=== PATIENT | male | born 1975 | race Caucasian/White ===

== ENCOUNTER 2017-10-29 15:01 | Emergency (ER) | payer OTHER ==
[~2017-10-29] VITALS: Ht 162.6 cm; Wt 70.0 kg
[2017-10-29 15:10] VITALS: BP 147/98; PULSE 88; RESP 16; TEMP 98.3; O2SAT 97
[2017-10-29] MEDS ORDERED: LACTULOSE SYRUP 20 GM/30 ML CUP PO ONE (18:30)
[2017-10-29] MEDS ORDERED: MAGNESIUM HYDROXIDE SUSP 30 ML CUP PO ONE (18:30)
--- NOTE | 2017-10-29 19:11 | RADRPT ---
EXAM DATE: 10/29/2017 6:56 PM EDT AGE/SEX: 42 years / Male INDICATIONS: Abdominal pain and distention. CLINICAL DATA: This is the patient's initial encounter. Patient reports that signs and symptoms have been present for 2 weeks and indicates a pain score of 8/10. MEDICAL/SURGICAL HISTORY: None. . Total knee surgery. COMPARISON: No prior exams available for comparison. FINDINGS: The bowel gas is nonspecific. There are no signs of obstruction or free air for technique . No definite calcified stones are identified for technique. Moderate stool is present throughout the colon. CONCLUSION: Unremarkable study except for stool. Electronically signed by: Claudia Martinez MD 10/29/2017 7:09 PM EDT
[2017-10-29 19:15] LABS: AUTOMATED NEUTROPHIL # 8.1 TH/MM3 (1.8-7.7); BASOPHIL % 0.2 % (0.0-2.0); EOSINOPHIL % 0.1 % (0.0-4.0); HEMATOCRIT 41.8 % (39.0-51.0); LYMPH % 15.8 % (9.0-44.0); LYMPHOCYTE # 1.6 TH/MM3 (1.0-4.8); MEAN CORPUSCULAR HEMOGLOBIN 28.4 PG (27.0-34.0); MEAN CORPUSCULAR HGB CONC 33.5 % (32.0-36.0); MEAN PLATELET VOLUME 6.8 FL (7.0-11.0); MONO % 3.7 % (0.0-8.0); MONOCYTE # 0.4 TH/MM3 (0-0.9); NEUT % 80.2 % (16.0-70.0); PLATELET COUNT 554 TH/MM3 (150-450); RED BLOOD COUNT 4.92 MIL/MM3 (4.50-5.90); RED CELL DISTRIBUTION WIDTH 13.6 % (11.6-17.2); WHITE BLOOD COUNT 10.1 TH/MM3 (4.0-11.0)
[2017-10-29] MEDS ORDERED: PEG (High)/E-LYTE SOLN 4000 ML BTL PO ONE (19:15)
[2017-10-29 19:25] LABS: ALBUMIN 4.1 GM/DL (3.4-5.0); AST (GOT) 23 U/L (15-37); BICARBONATE 27.7 MEQ/L (21.0-32.0); BLOOD UREA NITROGEN 17 MG/DL (7-18); CALCIUM 9.3 MG/DL (8.5-10.1); CHLORIDE 103 MEQ/L (98-107); CREATININE 1.03 MG/DL (0.60-1.30); GLOMERULAR FILTRATION RATE 80 ML/MIN (>89); GLUCOSE,RANDOM 94 MG/DL (74-106); SODIUM (NA) 141 MEQ/L (136-145)
[2017-10-29 19:28] LABS: ALKALINE PHOSPHATASE 104 U/L (45-117); ALT (GPT) 36 U/L (12-78); TOTAL BILIRUBIN ADULT 0.5 MG/DL (0.2-1.0); TOTAL PROTEIN 8.4 GM/DL (6.4-8.2)
--- NOTE | 2017-10-29 19:32 | PD ---
HPI Chief Complaint: GI Complaint Time Seen by Provider: 18:15 Travel History International Travel<30 days: No Contact w/Intl Traveler<30days: No Traveled to known affect area: No History of Present Illness HPI Patient is a 42 year old male who comes in complaining of constipation. He had a knee replacement performed 2 weeks ago and has been taking pain medication for this. He says that he has mostly been having small, hard bowel movements and he feels like he has to go. He went to the [place] on Sunday and was given 2 enemas and he says "2 pills," but has not had a significant bowel movement. He says he has tried to eat more fiber, "popcorn, pistachios, fruit," but still is not having regular bowel movements. He says he has some lower abdominal cramping. [facility] and make sure he is not impacted or obstructed. He denies nausea or vomiting. He denies fever or chills. Severity is mild. [facility] Past Medical History Hypertension: Yes (DIET CONTROLLED) Past Surgical History Joint Replacement: Yes (LEFT KNEE REPLACEMENT ) Social History Alcohol Use: Yes (OCCASIONAL) Tobacco Use: No Substance Use: No Allergies-Medications (Allergen,Severity, Reaction): Coded Allergies: No Known Allergies (Unverified , 10/29/17) Review of Systems Except as stated in HPI: all other systems reviewed are Neg General / Constitutional: No: Fever, Chills HENT: No: Headaches, Lightheadedness Cardiovascular: No: Chest Pain or Discomfort Respiratory: No: Shortness of Breath Gastrointestinal: Positive: Constipation, No: Nausea, Vomiting Musculoskeletal: No: Myalgias, Edema Skin: No Rash, No Change in Pigmentation Neurologic: No: Weakness, Dizziness Physical Exam Narrative GENERAL: Awake and alert, in no acute distress. SKIN: Focused skin assessment warm/dry. HEAD: Atraumatic. Normocephalic. EYES: Pupils equal and round. No scleral icterus. ENT: Mucous membranes pink and moist. NECK: Trachea midline. No JVD. CARDIOVASCULAR: Regular rate and rhythm. No murmur appreciated. RESPIRATORY: No accessory muscle use. Clear to auscultation. Breath sounds equal bilaterally. GASTROINTESTINAL: Abdomen soft, non-tender, nondistended. No rebound or guarding. MUSCULOSKELETAL: No obvious deformities. No clubbing. No cyanosis. No edema. NEUROLOGICAL: Awake and alert. No obvious cranial nerve deficits. Motor grossly within normal limits. Normal speech. PSYCHIATRIC: Appropriate mood and affect; insight and judgment normal. Data Data Last Documented VS Vital Signs Date Time Temp Pulse Resp B/P (MAP) Pulse Ox O2 Delivery O2 Flow Rate FiO2 10/29/17 15:10 98.3 88 16 147/98 (114) 97 Orders Orders Complete Blood Count With Diff (10/29/17 18:22) Comprehensive Metabolic Panel (10/29/17 18:22) Iv Access Insert/Monitor (10/29/17 18:22) Lactulose Liq (Lactulose Liq) (10/29/17 18:30) Magnesium Hydroxide Liq (Milk Of Magnesi (10/29/17 18:30) Abdomen, Flat & Upright (10/29/17 ) Peg (High)/E-Lyte Liq (Colyte Liq) (10/29/17 19:15) Labs Laboratory Tests Test 10/29/17 18:49 White Blood Count 10.1 TH/MM3 Red Blood Count 4.92 MIL/MM3 Hemoglobin 14.0 GM/DL Hematocrit 41.8 % Mean Corpuscular Volume 85.0 FL Mean Corpuscular Hemoglobin 28.4 PG Mean Corpuscular Hemoglobin Concent 33.5 % Red Cell Distribution Width 13.6 % Platelet Count 554 TH/MM3 Mean Platelet Volume 6.8 FL Neutrophils (%) (Auto) 80.2 % Lymphocytes (%) (Auto) 15.8 % Monocytes (%) (Auto) 3.7 % Eosinophils (%) (Auto) 0.1 % Basophils (%) (Auto) 0.2 % Neutrophils # (Auto) 8.1 TH/MM3 Lymphocytes # (Auto) 1.6 TH/MM3 Monocytes # (Auto) 0.4 TH/MM3 Eosinophils # (Auto) 0.0 TH/MM3 Basophils # (Auto) 0.0 TH/MM3 CBC Comment DIFF FINAL Differential Comment Blood Urea Nitrogen 17 MG/DL Creatinine 1.03 MG/DL Random Glucose 94 MG/DL Total Protein 8.4 GM/DL Albumin 4.1 GM/DL Calcium Level 9.3 MG/DL Alkaline Phosphatase 104 U/L Aspartate Amino Transf (AST/SGOT) 23 U/L Alanine Aminotransferase (ALT/SGPT) 36 U/L Total Bilirubin 0.5 MG/DL Sodium Level 141 MEQ/L Potassium Level 3.7 MEQ/L Chloride Level 103 MEQ/L Carbon Dioxide Level 27.7 MEQ/L Anion Gap 10 MEQ/L Estimat Glomerular Filtration Rate 80 ML/MIN MDM Medical Decision Making Medical Screen Exam Complete: Yes Emergency Medical Condition: Yes Medical Record Reviewed: Yes Differential Diagnosis constipation vs obstruction vs ileus Narrative Course Patient is a 42 year old male who comes in complaining of constipation. Exam shows no tenderness to palpation of the abdomen. XR performed shows large amount of stool, no obstruction. Given Lactulose and Mag Citrate with a small bowel movement. Given Golytely. He would like to finish this at home and use his own bathroom. Discharged home and advised to follow up with his doctors. Advised to return as needed for any worsening symptoms. Last 24 hours Impressions Abdomen X-Ray 10/29/17 0000 Signed Impressions: CONCLUSION: Unremarkable study except for stool. Diagnosis Primary Impression: Constipation Qualified Codes: K59.03 - Drug induced constipation Patient Instructions: Constipation (ED), General Instructions Additional Instructions: Follow-up with your doctors. Return to the ED as needed for any worsening symptoms. Disposition: 01 DISCHARGE HOME Condition: Stable Sheela Pendleton MD Oct 29, 2017 19:32
== END 2017-10-29 20:20 | disposition home or self-care (01) ==
LOC: NEPD 15:01
DX: K59.03 Drug induced constipation (principal); I10 Essential (primary) hypertension; Z98.890 Other specified postprocedural states; Z79.899 Other long term (current) drug therapy
CPT/HCPCS: 74019; 80053; 85025; 99284